=== PATIENT | male | born 1940 | race Hispanic/Latino ===

== ENCOUNTER 2018-01-09 20:20 | Inpatient (IN) | payer OTHER ==
[~2018-01-09] VITALS: Ht 167.6 cm; Wt 70.7 kg
[~2018-01-09 20:20] MED LIST changes: -LOSA1TAB37 PO; -METO5TAB2 PO; -TAMS0.4C32 PO
[2018-01-09 20:53] LABS: APPEARANCE,URINE Clear (CLEAR); BILIRUBIN,URINE Negative (NEGATIVE); COLOR,URINE Yellow (YELLOW); GLUCOSE, URINE (UA) Negative (NEGATIVE); KETONES,URINE Negative (NEGATIVE); LEUKOCYTE ESTERASE ,URINE Small (NEGATIVE); NITRATE,URINE Negative (NEGATIVE); OCCULT BLOOD,URINE Negative (NEGATIVE); PROTEIN,URINE Negative (NEGATIVE); UROBILINOGEN,URINE 0.2 mg/dL (0.2-1.0)
[2018-01-09 21:05] LABS: BACTERIA,URINE Rare /HPF (None Seen); RBC,URINE 0-1 /HPF (0-1)
[2018-01-09 21:06] LABS: SQUAMOUS EPITHELIAL CELL,UR Rare /LPF (0-2)
[2018-01-09 21:10] LABS: CREATININE 1.8 mg/dL (0.5-1.5); POTASSIUM 3.7 mmol/L (3.5-5.1)
[2018-01-09 21:14] LABS: ALBUMIN 3.8 g/dL (3.5-5.0); BILIRUBIN,TOTAL 1.6 mg/dL (0.2-1.0); TOTAL PROTEIN, SERUM 7.7 g/dL (6.0-8.3)
[2018-01-09 21:15] LABS: BASOPHILS % (AUTO) 0.2 % (0.0-5.0); EOSINOPHILS % (AUTO) 0.1 % (0.0-8.0); HEMATOCRIT 35.4 % (42-54); LYMPHOCYTES % (AUTO) 7.5 % (21.0-51.0); MEAN CORPUSCULAR HEMOGLOBIN 28.2 pg (27.0-33.0); MEAN CORPUSCULAR HGB CONC 33.4 g/dL (32.0-36.0); MEAN CORPUSCULAR VOLUME 84.5 fL (79-99); MONOCYTES % (AUTO) 8.5 % (3.0-13.0); NEUTROPHILS % (AUTO) 83.7 % (40.0-77.0); PLATELET COUNT (AUTO) 171 K/uL (130-400); RED BLOOD CELL COUNT(AUTO) 4.19 MIL/uL (4.50-6.20); WHITE BLOOD COUNT (AUTO) 9.9 K/uL (4.8-10.8)
[2018-01-09] MEDS ORDERED: ONDANSETRON HCL 4 MG/2 ML VIAL ONE (21:25)
[2018-01-09] MEDS ORDERED: DICYCLOMINE HCL 10 MG/ML 2ML AMP IM ONE (21:26)
[2018-01-09] MEDS ORDERED: CEFTRIAXONE SODIUM 2 GM VIAL ONE (23:23)
[2018-01-10] MEDS ORDERED: MORPHINE SULFATE 2 MG/ML 1ML SYG ONE (02:57)
[2018-01-10] MEDS ORDERED: METRONIDAZOLE 500MG/100ML BAG 100 ML ONE ×2 (05:08→12:34)
[2018-01-10] MEDS ORDERED: SODIUM CHLORIDE 0.9% 1000ML 1,000 ML IV ONE (05:08)
[2018-01-10] MEDS ORDERED: ONDANSETRON HCL 4 MG/2 ML VIAL IVP PRN (05:45)
[2018-01-10] MEDS: SODIUM CHLORIDE 0.9% 1000ML 1,000 ML IV SCH (05:45)
[2018-01-10] MEDS ORDERED: MEPERIDINE-PF 25 MG/ML SYG IV PRN (05:45)
[2018-01-10] MEDS: METRONIDAZOLE 500MG/100ML BAG 100 ML IVPB SCH ×3 (06:00→21:32)
[2018-01-10] MEDS ORDERED: PHARMACY COMMUNICATION MISC SCH (06:00)
[2018-01-10] MEDS: MEROPENEM 1 GM VIAL IVP SCH ×3 (06:00→21:33)
[2018-01-10] MEDS ORDERED: FAMOTIDINE/PF 20 MG/2 ML VIAL IV ONE (06:58)
[2018-01-10] MEDS ORDERED: MEROPENEM 1 GM VIAL ONE (06:58)
[2018-01-10] MEDS: FAMOTIDINE/PF 20 MG/2 ML VIAL IV SCH ×2 (09:00→21:34)
[2018-01-10] MEDS ORDERED: ONDANSETRON HCL 4 MG/2 ML VIAL ONE (09:27)
[2018-01-10] MEDS ORDERED: MEPERIDINE-PF 50 MG/ML SYG ONE ×2 (09:28→15:44)
[2018-01-10 14:35] VITALS: BP 161/85
[2018-01-10] MEDS ORDERED: MEPERIDINE HCL/PF 25 MG/0.5 ML AMPUL IV PRN (15:46)
[2018-01-10 18:25] VITALS: BP 128/76
[2018-01-10 19:00] VITALS: BP 149/92
[2018-01-11] VITALS (7 sets, daily range): BP systolic 146–171; BP diastolic 68–85
[2018-01-11] MEDS ORDERED: METO5TAB2 PO (01:26)
[2018-01-11] MEDS ORDERED: TAMS0.4C32 PO (01:26)
[2018-01-11] MEDS ORDERED: LOSA1TAB37 PO (01:28)
[2018-01-11] MEDS: METRONIDAZOLE 500MG/100ML BAG 100 ML IVPB SCH ×3 (05:03→22:14)
[2018-01-11] MEDS: MEROPENEM 1 GM VIAL IVP SCH ×3 (05:03→22:15)
[2018-01-11] MEDS: SODIUM CHLORIDE 0.9% 1000ML 1,000 ML IV SCH (05:12)
[2018-01-11] MEDS: FAMOTIDINE/PF 20 MG/2 ML VIAL IV SCH ×2 (09:33→22:15)
[2018-01-11] MEDS ORDERED: PEG 3350/NA SULF,BICARB,CL/KCL 4000 ML SOLN PO ONE (21:00)
[2018-01-11] MEDS: DEXTROSE 5 %-0.45 % NACL 1,000 ML IV SCH (22:16)
[2018-01-12 03:28] VITALS: BP 156/76
[2018-01-12 04:38] LABS: BASOPHILS % (AUTO) 0.3 % (0.0-5.0); EOSINOPHILS % (AUTO) 1.2 % (0.0-8.0); HEMATOCRIT 31.3 % (42-54); LYMPHOCYTES % (AUTO) 12.4 % (21.0-51.0); MEAN CORPUSCULAR HGB CONC 34.8 g/dL (32.0-36.0); MEAN CORPUSCULAR VOLUME 83.5 fL (79-99); MONOCYTES % (AUTO) 11.9 % (3.0-13.0); NEUTROPHILS % (AUTO) 74.2 % (40.0-77.0); PLATELET COUNT (AUTO) 201 K/uL (130-400); RED BLOOD CELL COUNT(AUTO) 3.75 MIL/uL (4.50-6.20); RED CELL DISTRIBUTION WIDTH 16.5 % (11.0-15.5); WHITE BLOOD COUNT (AUTO) 6.4 K/uL (4.8-10.8)
[2018-01-12 05:07] LABS: ALBUMIN 2.5 g/dL (3.5-5.0); BILIRUBIN,TOTAL 0.7 mg/dL (0.2-1.0); CREATININE 1.3 mg/dL (0.5-1.5); POTASSIUM 3.8 mmol/L (3.5-5.1); TOTAL PROTEIN, SERUM 5.8 g/dL (6.0-8.3)
[2018-01-12] MEDS: MEROPENEM 1 GM VIAL IVP SCH ×3 (06:09→22:29)
[2018-01-12] MEDS: METRONIDAZOLE 500MG/100ML BAG 100 ML IVPB SCH ×3 (06:10→22:29)
[2018-01-12] MEDS: FAMOTIDINE/PF 20 MG/2 ML VIAL IV SCH ×2 (07:48→22:29)
[2018-01-12 07:55] VITALS: BP 135/70
[2018-01-12 11:18] VITALS: BP 166/89
[2018-01-12] MEDS: DEXTROSE 5 %-0.45 % NACL 1,000 ML IV SCH (13:44)
[2018-01-12 16:00] VITALS: BP 166/80
[2018-01-12 20:15] VITALS: BP 166/88
[2018-01-12] MEDS ORDERED: BISACODYL 10 MG SUPP.RECT RC ONE (21:00)
[2018-01-13 00:11] VITALS: BP 141/71
[2018-01-13] MEDS: DEXTROSE 5 %-0.45 % NACL 1,000 ML IV SCH ×2 (01:44→08:25)
[2018-01-13 04:28] LABS: BASOPHILS % (AUTO) 0.3 % (0.0-5.0); EOSINOPHILS % (AUTO) 2.1 % (0.0-8.0); HEMATOCRIT 29.2 % (42-54); LYMPHOCYTES % (AUTO) 12.6 % (21.0-51.0); MEAN CORPUSCULAR HGB CONC 33.7 g/dL (32.0-36.0); MEAN CORPUSCULAR VOLUME 82.9 fL (79-99); MONOCYTES % (AUTO) 15.3 % (3.0-13.0); NEUTROPHILS % (AUTO) 69.7 % (40.0-77.0); PLATELET COUNT (AUTO) 182 K/uL (130-400); RED BLOOD CELL COUNT(AUTO) 3.52 MIL/uL (4.50-6.20); RED CELL DISTRIBUTION WIDTH 15.9 % (11.0-15.5); WHITE BLOOD COUNT (AUTO) 6.3 K/uL (4.8-10.8)
[2018-01-13 04:35] VITALS: BP 145/74
[2018-01-13 04:35] LABS: ALBUMIN 2.3 g/dL (3.5-5.0); BILIRUBIN,TOTAL 0.6 mg/dL (0.2-1.0); CREATININE 1.3 mg/dL (0.5-1.5); POTASSIUM 3.7 mmol/L (3.5-5.1); TOTAL PROTEIN, SERUM 5.3 g/dL (6.0-8.3)
[2018-01-13] MEDS: METRONIDAZOLE 500MG/100ML BAG 100 ML IVPB SCH ×3 (06:11→22:18)
[2018-01-13] MEDS: MEROPENEM 1 GM VIAL IVP SCH ×3 (06:11→22:18)
[2018-01-13] MEDS: FAMOTIDINE/PF 20 MG/2 ML VIAL IV SCH ×2 (08:24→19:59)
[2018-01-13] MEDS ORDERED: BISACODYL 10 MG SUPP.RECT RC ONE ×2 (09:00→20:30)
[2018-01-13 12:00] VITALS: BP 140/73
[2018-01-13 16:00] VITALS: BP 150/75
[2018-01-13 19:00] VITALS: BP 158/73
[2018-01-14] VITALS: BP 146/75
[2018-01-14] MEDS: DEXTROSE 5 %-0.45 % NACL 1,000 ML IV SCH ×3 (03:34→20:26)
[2018-01-14 04:00] VITALS: BP 135/73
[2018-01-14] MEDS: METRONIDAZOLE 500MG/100ML BAG 100 ML IVPB SCH ×3 (05:51→22:45)
[2018-01-14] MEDS: MEROPENEM 1 GM VIAL IVP SCH ×3 (05:51→22:45)
[2018-01-14 08:00] VITALS: BP 139/64
[2018-01-14] MEDS: FAMOTIDINE/PF 20 MG/2 ML VIAL IV SCH ×2 (08:26→20:26)
[2018-01-14 11:00] VITALS: BP 150/72
[2018-01-14 16:00] VITALS: BP 146/68
[2018-01-14 19:00] VITALS: BP 157/86
[2018-01-15] VITALS: BP 158/76
[2018-01-15 04:00] VITALS: BP 128/64
[2018-01-15] MEDS: METRONIDAZOLE 500MG/100ML BAG 100 ML IVPB SCH ×3 (05:21→21:11)
[2018-01-15] MEDS: DEXTROSE 5 %-0.45 % NACL 1,000 ML IV SCH ×3 (05:21→21:09)
[2018-01-15] MEDS: MEROPENEM 1 GM VIAL IVP SCH ×3 (05:21→21:11)
[2018-01-15 08:00] VITALS: BP 114/78
[2018-01-15] MEDS: FAMOTIDINE/PF 20 MG/2 ML VIAL IV SCH ×2 (09:12→21:10)
[2018-01-15 11:40] VITALS: BP 138/62
[2018-01-15 16:00] VITALS: BP 138/73
[2018-01-15] MEDS ORDERED: PEG 3350/NA SULF,BICARB,CL/KCL 4000 ML SOLN PO ONE (17:00)
[2018-01-15 19:00] VITALS: BP 147/81
[2018-01-16] VITALS (19 sets, daily range): BP systolic 97–172; BP diastolic 44–85
[2018-01-16] MEDS: DEXTROSE 5 %-0.45 % NACL 1,000 ML IV SCH ×3 (04:54→21:07)
[2018-01-16] MEDS: METRONIDAZOLE 500MG/100ML BAG 100 ML IVPB SCH ×3 (04:54→21:07)
[2018-01-16] MEDS: MEROPENEM 1 GM VIAL IVP SCH ×3 (05:32→21:07)
[2018-01-16 07:34] LABS: INR 1.09 (0.85-1.15); PARTIAL THROMBOPLASTIN TIME 27.8 SEC (26.3-35.5); PROTHROMBIN TIME 11.4 SEC (9.6-11.6)
[2018-01-16] MEDS: FAMOTIDINE/PF 20 MG/2 ML VIAL IV SCH ×2 (08:15→21:07)
[2018-01-16] MEDS ORDERED: PROPOFOL 10 MG/ML 20ML VIAL IV ONE ×2 (12:46)
[2018-01-16] MEDS ORDERED: GLYCOPYRROLATE 0.2 MG/ML 5 ML VIAL ONE (12:47)
[2018-01-17 03:10] VITALS: BP 133/64
[2018-01-17] MEDS: DEXTROSE 5 %-0.45 % NACL 1,000 ML IV SCH ×3 (03:35→19:35)
[2018-01-17] MEDS: MEROPENEM 1 GM VIAL IVP SCH ×3 (05:02→22:03)
[2018-01-17] MEDS: METRONIDAZOLE 500MG/100ML BAG 100 ML IVPB SCH ×3 (05:02→22:04)
[2018-01-17 08:15] VITALS: BP 142/77
[2018-01-17 12:00] VITALS: BP 136/72
[2018-01-17] MEDS: FAMOTIDINE/PF 20 MG/2 ML VIAL IV SCH ×2 (13:34→22:04)
[2018-01-17 16:00] VITALS: BP 135/69
[2018-01-17 20:00] VITALS: BP 150/83
[2018-01-18] VITALS: BP 146/85
[2018-01-18] MEDS: DEXTROSE 5 %-0.45 % NACL 1,000 ML IV SCH (03:35)
[2018-01-18 04:00] VITALS: BP 135/73
[2018-01-18] MEDS: MEROPENEM 1 GM VIAL IVP SCH (04:34)
[2018-01-18] MEDS: METRONIDAZOLE 500MG/100ML BAG 100 ML IVPB SCH (04:34)
[2018-01-18 08:00] VITALS: BP 133/70
[2018-01-18] MEDS: FAMOTIDINE/PF 20 MG/2 ML VIAL IV SCH (09:25)
[2018-01-18 11:00] VITALS: BP 146/101
[2018-01-18] MEDS ORDERED: PNEUMOCOCCAL VACCINE POLYVALENT 0.5 ML/VIAL [PPV] IM SCH (14:00)
== END 2018-01-18 14:45 | disposition home or self-care (01) | DRG 388 ==
LOC: EDH 20:20 → OBSVTOIN 01-10 01:12 → EDHIP 01-10 01:12 → 3CH 01-10 12:48
PROVIDERS: ADMIT Family Medicine; ATTEND Family Medicine
PROC: 0D9670Z Drainage of Stomach with Drainage Device, Via Natural or Artificial Opening (ICD-10-PCS; 2018-01-11)
PROC: 3E0234Z Introduction of Serum, Toxoid and Vaccine into Muscle, Percutaneous Approach (ICD-10-PCS; principal; 2018-01-16)
PROC: 0DBK8ZX Excision of Ascending Colon, Via Natural or Artificial Opening Endoscopic, Diagnostic (ICD-10-PCS; 2018-01-16)
PROC: 0DBL8ZZ Excision of Transverse Colon, Via Natural or Artificial Opening Endoscopic (ICD-10-PCS; 2018-01-16)
DX: K56.609 Unspecified intestinal obstruction, unspecified as to partial versus complete obstruction (principal); N17.0 Acute kidney failure with tubular necrosis; R64 Cachexia; K63.3 Ulcer of intestine; E44.0 Moderate protein-calorie malnutrition; R17 Unspecified jaundice; D64.9 Anemia, unspecified; E11.9 Type 2 diabetes mellitus without complications; N18.3 Chronic kidney disease, stage 3 (moderate); K56.7 Ileus, unspecified; K52.9 Noninfective gastroenteritis and colitis, unspecified; E78.5 Hyperlipidemia, unspecified; D12.3 Benign neoplasm of transverse colon; I10 Essential (primary) hypertension; I25.10 Atherosclerotic heart disease of native coronary artery without angina pectoris; Z95.1 Presence of aortocoronary bypass graft; Z68.25 Body mass index [BMI] 25.0-25.9, adult; Z23 Encounter for immunization
CPT/HCPCS: 36415; 74018; 74176; 76705; 80053; 81001; 82150; 82948; 83690; 84484; 85025; 85610; 85730; 87040; 88305; 88341; 88342; 90732; 93005; A4218; G0009; J0500; J0696; J2175; J2185; J2405; J2704; J3490; J7030; J7042

== ENCOUNTER → 2018-01-09 | Outpatient (CLI) | payer OTHER ==
[~2018-01-09] MED LIST: ASPI-555 PO; ATOR40TA69 PO; FOLI1TAB85 PO; GLIM2TAB3 PO; LOSA1TAB37 PO; LOSA1TAB42 PO; METO50TA18 PO; METO5TAB2 PO; METR500T PO; METR500T4 PO; OMEP40CA37 PO; PRED20TA3 PO; TAMS0.4C32 PO
== END | disposition home or self-care (01) ==
LOC: OIH 09:41
PROVIDERS: ATTEND Family Medicine
DX: K59.01 Slow transit constipation (principal); K29.00 Acute gastritis without bleeding
CPT/HCPCS: 74018

== ENCOUNTER → 2018-02-06 | Outpatient (CLI) | payer OTHER ==
[~2018-02-06] MED LIST changes: +IOPAMIDOL-370 100 ML VIAL IV ONE; +LOSA1TAB37 PO; -LOSA1TAB42 PO; -METO50TA18 PO; +METO5TAB2 PO; -METR500T PO; -METR500T4 PO; -PRED20TA3 PO; +TAMS0.4C32 PO
== END | disposition home or self-care (01) ==
LOC: OIH 09:37
PROVIDERS: ATTEND Family Medicine
DX: I70.8 Atherosclerosis of other arteries (principal); K55.069 Acute infarction of intestine, part and extent unspecified; K80.20 Calculus of gallbladder without cholecystitis without obstruction
CPT/HCPCS: 74175; Q9967

== ENCOUNTER 2021-06-17 19:29 | Emergency (ER) | payer OTHER ==
[~2021-06-17] VITALS: Ht 167.6 cm; Wt 63.5 kg
[~2021-06-17 19:29] MED LIST changes: -ASPI-555 PO; +ASPI-556 PO; -GLIM2TAB3 PO; +GLIM2TAB30 PO; -IOPAMIDOL-370 100 ML VIAL IV ONE; +OMEP40CA21 PO; -OMEP40CA37 PO
[2021-06-17 19:56] VITALS: BP 121/77
[2021-06-18] MEDS ORDERED: MORPHINE 4 MG SYG IM ONE (00:30)
[2021-06-18] MEDS ORDERED: [UNRECOGNIZED DRUG - CODE] TP (00:43)
[2021-06-18] MEDS ORDERED: MORPHINE 4 MG SYG ONE (00:49)
[2021-06-18 01:08] VITALS: BP 118/72
[2021-06-19] MEDS ORDERED: BENZ1LOZ83 MM (01:57)
[2021-06-19] MEDS ORDERED: AMOX-429 PO (01:57)
[2021-06-19] MEDS ORDERED: DOCU100T PO (01:57)
[2021-06-19] MEDS ORDERED: ROSU10TA28 PO (01:57)
[2021-06-19] MEDS ORDERED: OMEP40CA21 PO (01:57)
[2021-06-19] MEDS ORDERED: ASPI-1443 PO (01:57)
[2021-06-19] MEDS ORDERED: AMLO-257 PO (01:57)
[2021-06-19] MEDS ORDERED: GABA-529 PO (01:57)
[2021-06-19] MEDS ORDERED: LOSA100T58 PO (01:57)
[2021-06-19] MEDS ORDERED: NYST5ORA7 PO (01:57)
[2021-06-19] MEDS ORDERED: METO50TA18 PO (01:57)
[2021-06-19] MEDS ORDERED: FOLI0.8T43 PO (01:57)
== END 2021-06-18 01:15 | disposition home or self-care (01) ==
LOC: EDH 19:29
DX: B02.29 Other postherpetic nervous system involvement (principal); I10 Essential (primary) hypertension; Z79.82 Long term (current) use of aspirin; Z79.899 Other long term (current) drug therapy; Z95.1 Presence of aortocoronary bypass graft
CPT/HCPCS: 71045; 96372; 99283; J2270

== ENCOUNTER → 2025-01-08 | Outpatient (CLI) | payer OTHER, MEDICARE ==
[~2025-01-08] MED LIST changes: +AMLO-257 PO; -ASPI-556 PO; -ATOR40TA69 PO; +DAPA10TA PO; +FOLI0.8T22 PO; -FOLI1TAB85 PO; -GLIM2TAB30 PO; -LOSA1TAB37 PO; +METO50TA18 PO; -METO5TAB2 PO; +ROSU10TA72 PO; +SODI325T PO; -TAMS0.4C32 PO; +[UNRECOGNIZED DRUG - CODE] TP
--- NOTE | 2025-01-15 12:01 | HMCSR ---
APPROVED REPORT Laterality: Bilateral Indications R09.89 Doppler Spectral Velocity Analysis PSV / EDVPSV / EDV ECA (R) 110 / cm/sECA (L) 100 / cm/s dICA (R) 89 / 22 cm/sdICA (L) 74 / 19 cm/s Gerardo (R) 89 / 21 cm/smICA (L) 71 / 11 cm/s pICA (R) 75 / 14 cm/spICA (L) 65 / 12 cm/s dCCA (R) 68 / 10 cm/sdCCA (L) 71 / 9 cm/s mCCA (R) 64 / 10 cm/smCCA (L) 69 / 11 cm/s pCCA (R) 70 / 10 cm/spCCA (L) 83 / 13 cm/s Vert (R) 62 / cm/sVert (L) 50 / cm/s Subl. (R) 124 / cm/sSubl. (L) 173 / cm/s ICA/CCA 1.27ICA/CCA 0.89 Technologist Impression Mild plaque noted in the bilateral carotid bulbs. ASHWIN and LICA appear patent without hemodynamic significance Bilateral vertebral arteries appear antegrade. Conclusion Mild plaque noted in the bilateral carotid bulbs. ASHWIN and LICA appear patent without hemodynamic significance Bilateral vertebral arteries appear antegrade. Conclusion Mild plaque noted in the bilateral carotid bulbs. ASHWNI and LICA appear patent without hemodynamic significance Bilateral vertebral arteries appear antegrade.
== END | disposition home or self-care (01) ==
LOC: SHCH 10:55
PROVIDERS: ATTEND Student in an Organized Health Care Education/Training Program
DX: R09.89 Other specified symptoms and signs involving the circulatory and respiratory systems (principal)
CPT/HCPCS: 93880